=== PATIENT | male | born 1970 | race Caucasian/White ===

== ENCOUNTER 2018-07-22 17:44 | Emergency (ER) | payer BC ==
[~2018-07-22] VITALS: Ht 190.5 cm; Wt 100.0 kg
--- NOTE | 2018-07-22 17:44 | NUR ---
BIBA from home c/o cramping in extremities x4 & ribcage, onset 1300 today, " feels like when I had low potassium & low sodium"; denies NV; ASA 325mg HARPOONER per EMS; pt changed into gown, rsponds approp to MOI garcia, comfort measures provided, at BS, call light within reach.
[2018-07-22] MEDS ORDERED: ASPI-496 PO (18:02)
[2018-07-22] MEDS ORDERED: Lisinopril (18:02)
[2018-07-22] MEDS ORDERED: Diazepam (18:02)
[2018-07-22] MEDS ORDERED: DIAZEPAM 5 MG TABLET PO ONE (18:30)
[2018-07-22 18:42] LABS: BASOPHILS # (AUTO) 0.03 x10^3/uL (0-0.1); BASOPHILS % (AUTO) 0 % (0-1); EOSINOPHILS # (AUTO) 0.06 x10^3/uL (0-0.4); EOSINOPHILS % (AUTO) 1 % (1-7); LYMPHOCYTES # (AUTO) 1.53 x10^3/uL (1-3.4); LYMPHOCYTES % (AUTO) 11 % (22-44); MD NO; MEAN CORPUSCULAR HEMOGLOBIN 33.8 pg (27.5-34.5); MEAN CORPUSCULAR HGB CONC 33.4 g/dL (33.2-36.2); MEAN CORPUSCULAR VOLUME 101.3 fL (81-97); MEAN PLATELET VOLUME 7.8 fL (7.4-10.4); MONOCYTES % (AUTO) 9 % (2-9); NEUTROPHILS # (AUTO) 11.02 x10^3/uL (1.8-6.8); NEUTROPHILS % (AUTO) 80 % (42-75); PLATELET COUNT 347 x10^3/uL (130-400); RED BLOOD COUNT 5.07 x10^6/uL (4.38-5.82); RED CELL DISTRIBUTION WIDTH 12.9 % (9.4-14.8)
[2018-07-22] MEDS ORDERED: DIAZEPAM 5 MG TABLET ONE (18:43)
[2018-07-22 18:49] LABS: ALANINE AMINOTRANSFERASE 41 U/L (12-78); ALBUMIN 4.6 g/dL (3.4-5.0); ANION GAP 11 mmol/L (5-15); CALCIUM 10.1 mg/dL (8.5-10.1); CHLORIDE 93 mmol/L (98-107); CREATININE 2.01 mg/dL (0.7-1.3)
[2018-07-22 18:51] LABS: ALKALINE PHOSPHATASE 84 U/L (45-117); CREATINE KINASE, TOTAL 290 U/L (39-308); TOTAL PROTEIN 8.8 g/dL (6.4-8.2)
--- NOTE | 2018-07-22 18:59 | NUR ---
report given to Shellie
--- NOTE | 2018-07-22 19:03 | NUR ---
pt resting calmly,nadn, denies needs, call light within reach
[2018-07-22] MEDS ORDERED: LORazepam 2 MG/ML, 1ML IVPush ONE (19:30)
[2018-07-22] MEDS ORDERED: SODIUM CHLORIDE 0.9% 1,000ML IVBOLUS ONE ×2 (19:30→21:00)
[2018-07-22] MEDS ORDERED: LORazepam 2 MG/ML, 1ML ONE (19:39)
--- NOTE | 2018-07-22 19:53 | NUR ---
IV SITE STARTED, IV FLUIDS INFUSING, PT MEDICATE PER MAR, MONITORS IN PLACE, CALL LIGHT WITHIN REACH
--- NOTE | 2018-07-22 20:14 | NUR ---
PT PLACED ON 2L O2 FOR DESATING TO 87% ON RA. BILAT BEDRAILS UP.
--- NOTE | 2018-07-22 20:22 | NUR ---
PT RESTING ON GURNEY, STATED HE'S PAIN IS BETTER, MONITORS IN PLACE, CALL LIGHT WITHIN REACH
[2018-07-22 21:21] VITALS: BP 131/83
--- NOTE | 2018-07-22 21:42 | NUR ---
TASK RN: PT REPORTS IMPROVEMENT IN S/S WITH MEDS/IVF. DC EDUCATION PROVIDED, PT DEMONSTRATES UNDERSTANDING. PT AMBULATED STEADILY TO DC WITH SO
== END 2018-07-22 21:43 | disposition home or self-care (01) ==
LOC: ED 20:17
DX: E86.0 Dehydration (principal); E87.1 Hypo-osmolality and hyponatremia; R79.89 Other specified abnormal findings of blood chemistry; I10 Essential (primary) hypertension; F17.200 Nicotine dependence, unspecified, uncomplicated
CPT/HCPCS: 36415; 80053; 82550; 85025; 96360; 96361; 99283; J2060; J7030